=== PATIENT | male | born 1970 | race Caucasian/White ===

== ENCOUNTER 2021-06-30 04:34 | Emergency (ER) | payer BC ==
[2021-06-30] MEDS ORDERED: Aspirin 81 MG Tab.Chew PO STA (05:17)
--- NOTE | 2021-06-30 05:23 | EDM.PDOC ---
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 He said he was leaning on his right arm and did a lot of hand gripping yesterday. There is no n/v, dyspnea. No neuro deficits noted by or patient. - Related Data Allergies Allergy/AdvReac Type Severity Reaction Status Date / Time No Known Allergies Allergy Verified 06/30/21 05:24 Home Meds: Home Meds NK [No Known Home Meds] 06/30/21 [History] ED ROS GENERAL - Review of Systems Review Of Systems: See Below Constitutional: Reports: No Symptoms HEENT: Reports: No Symptoms Respiratory: Reports: No Symptoms Cardiovascular: Reports: Chest Pain Endocrine: Reports: No Symptoms GI/Abdominal: Reports: No Symptoms : Reports: No Symptoms Musculoskeletal: Reports: No Symptoms Skin: Reports: No Symptoms ED EXAM, GENERAL - Physical Exam Exam: See Below Exam Limited By: No Limitations General Appearance: Alert, No Apparent Distress Ears: Normal External Exam, Normal Canal, Hearing Grossly Normal Nose: Normal Inspection, Normal Mucosa, No Blood Throat/Mouth: Normal Inspection, Normal Lips, Normal Teeth Head: Atraumatic, Normocephalic Neck: Normal Inspection, Supple, Non-Tender, Full Range of Motion Respiratory/Chest: No Respiratory Distress, Lungs Clear, Normal Breath Sounds, No Accessory Muscle Use, Chest Non-Tender Cardiovascular: Normal Peripheral Pulses, Regular Rate, Rhythm, No Edema, No Gallop, No JVD, No Murmur GI/Abdominal: Normal Bowel Sounds, Soft, Non-Tender, No Organomegaly, No Distention, No Abnormal Bruit, No Mass Back Exam: Normal Inspection, Full Range of Motion Extremities: Normal Inspection, Normal Range of Motion, Non-Tender, No Pedal Edema, Normal Capillary Refill Neurological: Alert, Oriented, CN II-XII Intact, Normal Cognition, Normal Gait, Normal Reflexes, No Motor/Sensory Deficits Psychiatric: Normal Affect, Normal Mood Skin Exam: Warm #1 Interpretation EKG Date: 06/30/21 Time: 04:43 Rhythm: NSR Rate (Beats/Min): 75 Bow: Normal P-Wave: Present QRS: Normal QT: Normal RI/PQ Interval: 184 Comparison: NA - No Prior EKG EKG Interpretation Comments: NSR Early repolarization Course - Vital Signs Text/Narrative:: Lab/EKG/result was reviewed and discussed with patient ASA 324 mg PO x1 Last Recorded V/S: Last Vital Signs Temp 36.6 C 06/30/21 04:35 Pulse Resp BP Pulse Ox - Orders/Labs/Meds Labs: Laboratory Tests 06/30/21 06/30/21 06/30/21 Range/Units 05:20 05:20 05:20 WBC 7.7 (3.2-10.1) x10-3/uL RBC 5.13 (3.90-5.90) x10(6)uL Hgb 14.3 (12.9-17.7) g/dL Hct 44.1 (38.3-50.1) % MCV 85.9 (80.8-98.7) fL MCH 28.0 (27.0-33.3) pg MCHC 32.6 (28.7-35.3) g/dL RDW 13.1 (12.4-15.0) % Plt Count 342 (117-477) x10(3)uL MPV 7.6 (6.7-11.0) fL Neut % (Auto) 50.7 (40.3-71.8) % Lymph % (Auto) 36.3 (15.8-45.3) % [place] % (Auto) 8.9 (5.5-15.2) % Eos % (Auto) 3.2 (0.1-6.8) % Baso % (Auto) 0.9 (0.3-3.8) % Neut # (Auto) 3.9 (1.7-6.9) x10-3/uL Lymph # (Auto) 2.8 (0.5-4.5) x10-3/uL [place] # (Auto) 0.7 (0.0-1.2) x10-3/uL Eos # (Auto) 0.2 (0.0-0.6) x10-3/uL Baso # (Auto) 0.1 (0.0-0.3) x10-3/uL Sodium 141 (135-145) mmol/L Potassium 4.5 (3.5-5.3) mmol/L Chloride 106 (100-110) mmol/L Carbon Dioxide 23 (21-32) mmol/L BUN 21 H (7-18) mg/dL Creatinine 0.9 (0.70-1.30) mg/dL Est Cr Clr Drug Dosing 95.00 mL/min Estimated GFR (MDRD) > 60 (>60) BUN/Creatinine Ratio 23.3 H (9-20) Glucose 119 H (80-116) mg/dL Calcium 7.7 L (8.6-10.2) mg/dL Total Bilirubin 0.4 (0.1-1.3) mg/dL AST 20 (5-25) IU/L ALT 37 H (12-36) U/L Alkaline Phosphatase 94 (56-112) IU/L Troponin I 4.8 (4.0-60.3) pg/mL Total Protein 6.8 (6.0-8.0) g/dL Albumin 3.2 L (3.5-5.2) g/dL Globulin 3.6 g/dL Albumin/Globulin Ratio 0.9 Meds: Medications Discontinued Medications Generic Name Dose Route Start Last Admin Trade Name Erichq PRN Reason Stop Dose Admin Aspirin 324 mg 06/30/21 05:17 06/30/21 05:15 Aspirin 81 Mg Tab.Chew PO 06/30/21 05:18 324 mg NOW STA Administration Departure - Departure Time of Disposition: 06:30 Disposition: Home, Self-Care 01 Condition: Good Clinical Impression: Chest pain Instructions: Nonspecific Chest Pain, Adult, [id number] Referrals: PCP,None [Primary Care Provider] - Forms: ED Department Discharge Additional Instructions: Please read discharge instructions on atypical or non-cardiac chest pain Monitor and record your BP for 1 week and bring it during your doctors visit Follow up with your doctor in a week Sepsis Event Note (ED) - Focused Exam Vital Signs: Vital Signs Temp 06/30/21 04:35 36.6 C
== END 2021-06-30 06:30 | disposition home or self-care (01) ==
LOC: FB.ED 04:34
DX: R07.89 Other chest pain (principal); R20.2 Paresthesia of skin
CPT/HCPCS: 36415; 80053; 84484; 85025; 99285; A9270